=== PATIENT | female | born 1985 | race Hispanic/Latino ===

== ENCOUNTER 2018-06-24 12:15 | Outpatient (CLI) | payer OTHER ==
[2018-06-24 13:03] LABS: ALT (SGPT) 46 U/L (8-55); AST (SGOT) 29 U/L (5-34); Albumin 4.6 g/dL (3.5-5.0); Alkaline Phosphatase 101 U/L (40-150); Anion Gap 15 mmol/L (10-20); BUN (Urea Nitrogen) 7 mg/dL (7.0-18.7); Bilirubin, Total 0.3 mg/dL (0.2-1.2); Calc. Creatinine Clearance 0 mL/min (70-130); Calcium 9.6 mg/dL (7.8-10.44); Carbon Dioxide 21 mmol/L (22-29); Chloride 102 mmol/L (98-107); Estimated GFR-MDRD 64; Globulin 3.6 g/dL (2.4-3.5); Glucose 96 mg/dL (70-105); Potassium 3.6 mmol/L (3.5-5.1); Protein, Total 8.2 g/dL (6.0-8.3); Sodium 134 mmol/L (136-145)
--- NOTE | 2018-06-24 13:22 | RAD ---
RIGHT TOE THREE VIEWS: 06/24/2018 HISTORY: The patient dropped a 35-pound weight on the right great toe months ago. The patient states the pain went away but now swelling has occurred. FINDINGS: No obvious fracture is seen, and there is no dislocation. There is a curvilinear calcification seen at the medial aspect of the interphalangeal joint of the great toe, which may be related to heterotop ic ossification, related to prior injury. No other findings. There is no significant soft tissue sw elling appreciated on this exam. IMPRESSION: 1. 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 2. No fracture is seen on this exam. POS: VICK
[2018-06-24 13:39] LABS: Band 2 % (5-11); Eosinophils 1 % (0-10); Hemoglobin 13.4 g/dL (12.0-16.0); Lymphocytes 14 % (21-51); MDiff Complete? YES; Mean Corpuscular HGB CONC 33.6 g/dL (32.0-36.0); Mean Corpuscular Hemoglobin 31.5 pg (27.0-31.0); Mean Corpuscular Volume 93.5 fL (78.0-98.0); Mean Platelet Volume 7.8 fL (7.4-10.4); Monocytes 6 % (0-10); Neutrophil 77 % (42-75); Platelet Count 245 thou/uL (130-400); Platelet Morphology Comment Appears Adequate; RBC Distribution Width 11.5 % (11.5-14.5); RBC Morphology Normal; Red Blood Cell (RBC) Count 4.25 mill/uL (4.20-5.40); White Blood Cell (WBC) Count 10.8 thou/uL (4.8-10.8)
[2018-06-24 15:33] LABS: Mononucleosis NEGATIVE (NEGATIVE)
[2018-06-24 15:34] LABS: MONO NEGATIVE CONTROL ZONE White (Negative) (White); MONO POSITIVE CONTROL Pink Line (Positive) (PINK/RED)
[2018-06-25 11:25] LABS: EBV Early Antigen (EA) IgG AB <9.0 U/mL (0.0-8.9); EBV VCA IgM <36.0 U/mL (0.0-35.9)
== END 2018-06-24 12:16 | disposition home or self-care (01) ==
LOC: SCSRAD 12:15
PROVIDERS: ATTEND Family Medicine
DX: M79.674 Pain in right toe(s) (principal); J02.9 Acute pharyngitis, unspecified; M25.871 Other specified joint disorders, right ankle and foot
CPT/HCPCS: 36415; 80053; 85025; 86308; 86644; 86645; 86663; 86664; 86665